=== PATIENT | male | born 1955 | race Caucasian/White ===

== ENCOUNTER 2018-09-21 07:58 | Emergency (ER) | payer MEDICAID ==
[~2018-09-21 07:58] MED LIST: AZITHROMYCIN 250 MG TAB PO SCH; predniSONE 20 MG TAB PO SCH
[2018-09-21] MEDS ORDERED: NS 1,000 ML IV ONE (08:05)
[2018-09-21] MEDS ORDERED: methylPREDNISolone SOD SUCC 125 MG/2 ML VIAL IVP ONE (08:05)
[2018-09-21] MEDS ORDERED: IPRATROPIUM/ALBUTEROL 3 ML DEYVIAL IH ONE (08:05)
--- NOTE | 2018-09-21 08:09 | EDPHY ---
H & P Time Seen by Provider: 09/21/18 08:01 Constitutional: Initial Vital Signs Temperature (C) 37 C 09/21/18 07:58 Heart Rate 114 H 09/21/18 07:58 Respiratory Rate 20 09/21/18 07:58 Blood Pressure 125/85 H 09/21/18 07:58 O2 Sat (%) 92 09/21/18 07:58 O2 Delivery Mode Room Air Allergies/Adverse Reactions: No Known Allergies Allergy (Unverified 09/21/18 08:12) Home Medications: Medication Instructions Recorded Albuterol [Proventil Inhaler] 1 - 2 puffs IH Q4 #1 mdi 09/21/18 Azithromycin [Zithromax] 250 mg PO DAILY #6 tab 09/21/18 predniSONE 40 mg PO DAILY #10 tab 09/21/18 Medical Decision Making - Diagnostics Imaging Results: Imaging Impressions Chest X-Ray 09/21/18 08:05 Impression: 1. Prominence of perihilar interstitial markings and peribronchial cuffing. Findings are nonspecific but can be seen with bronchitis, reactive airway disease, or viral process.. 2. Possible superimposed early pneumonia left lower lobe. Imaging: I viewed and interpreted images myself ED Course/Re-evaluation: CHIEF COMPLAINT: Flu-like symptoms HISTORY OF PRESENT ILLNESS: The patient is a 63 y/o male arriving via EMS complaining of flu-like symptoms, onset 3 days ago. These symptoms include a fever and shortness of breath. Last night he developed reproducible right-sided chest pain. Due to these symptoms, he decided to call 911 and present to the emergency department. No headache, abdominal pain, urinary or bowel complaints, numbness or paresthesias. REVIEW OF SYSTEMS: A comprehensive 10 system review of systems is otherwise negative aside from the elements mentioned in the history of present illness and medical decision making. PHYSICAL EXAM: HR, BP, O2 Sat, RR. Temp noted General Appearance: Alert, well hydrated, appropriate, and non-toxic appearing. Head: Atraumatic without scalp tenderness or obvious injury Eyes: Pupils equal, round, reactive to light and accommodation, EOMI, no trauma , no injection. Ears: Clear bilaterally, no perforation, normal landmarks Nose: Atraumatic, no rhinorrhea, clear. Throat: There is no erythema or exudates, no lesions, normal tonsils, mucus membranes moist. Neck: Supple, 2+ carotid upstroke, nontender, no lymphadenopathy. Respiratory: Coarse rhonchi bilaterally. No retractions, no distress, no wheezes , and no accessory muscle use. Cardiovascular: Regular rate and rhythm, no murmurs, rubs, or gallops. Bilateral carotid, radial, dorsalis pedis, and posterior tibial pulses intact. Good capillary refill all extremities. Chest: Reproducible right chest wall pain. Gastrointestinal: Abdomen is soft, nontender, non-distended, no masses, no rebound, no guarding, no peritoneal signs. Musculoskeletal: Normal active ROM of all extremities, atraumatic. Neurological: Alert, appropriate, and interactive. The patient has normal DTRs and non-focal cranial nerves, motor, sensory, and cerebellar exam. Skin: No rashes, good turgor, no nodules on palpation. Past medical history: Denies Past surgical history: Denies Family history: Denies Social history: Transient, single, not employed DIAGNOSTICS/PROCEDURES/CRITICAL CARE TIME: EKG: The 12 lead EKG was interpreted by myself as sinus tachycardia with a rate of 114. See hard copy and/or "tracemaster" electronic copy for interpretation. Chest x-ray: Early pneumonia left lower lobe. DIFFERENTIAL DIAGNOSIS: The differential diagnosis for the patient's fever included but was not limited to pneumonia, urinary tract infection, viral syndrome, meningitis, and sepsis. MEDICAL DECISION MAKING: The patient is a 63 y/o male arriving via EMS presenting with flu-like symptoms including reproducible right chest pain, onset 3 days ago. One exam he has coarse rhonchi and reproducible right chest wall pain. Chest x-ray, EKG, and labs ordered; 1L IV NS, DuoNeb, and 125mg IV Solu-Medrol. 0803: I reviewed patient's EKG as sinus tachycardia with a rate of 114. 0841: I reviewed patient's chest x-ray which reveals an early left lower lobe pneumonia. 8mg PO Decadron and 500mg PO Azithromycin administered. I have prescribed him a Z-juan carlos, prednisone, and an albuterol inhaler. 0930: Reassessed patient and discussed laboratory and imaging findings. I have also discussed the prescriptions. Return precautions provided; patient is comfortable with this plan. - Data Points Laboratory Results: Laboratory Results 09/21/18 08:25 09/21/18 08:25 09/21/18 09/21/18 09/21/18 08:25 08:25 08:25 WBC 26.57 10^3/uL H 10^3/uL (3.80-9.50) RBC 5.48 10^6/uL 10^6/uL (4.40-6.38) Hgb 17.6 g/dL H g/dL (13.7-17.5) Hct 47.9 % % (40.0-51.0) MCV 87.4 fL fL (81.5-99.8) MCH 32.1 pg pg (27.9-34.1) MCHC 36.7 g/dL g/dL (32.4-36.7) RDW 13.2 % % (11.5-15.2) Plt Count 149 10^3/uL L 10^3/uL (150-400) MPV 11.4 fL fL (8.7-11.7) Neut % (Auto) 77.7 % H % (39.3-74.2) Lymph % (Auto) 10.8 % L % (15.0-45.0) Beckham % (Auto) 7.2 % % (4.5-13.0) Eos % (Auto) 0.0 % L % (0.6-7.6) Baso % (Auto) 0.3 % % (0.3-1.7) Nucleat RBC Rel Count 0.0 % % (0.0-0.2) Absolute Neuts (auto) 20.66 10^3/uL H 10^3/uL (1.70-6.50) Absolute Lymphs (auto) 2.86 10^3/uL 10^3/uL (1.00-3.00) Absolute Monos (auto) 1.92 10^3/uL H 10^3/uL (0.30-0.80) Absolute Eos (auto) 0.00 10^3/uL L 10^3/uL (0.03-0.40) Absolute Basos (auto) 0.07 10^3/uL 10^3/uL (0.02-0.10) Absolute Nucleated RBC 0.00 10^3/uL 10^3/uL (0-0.01) Immature Gran % 4.0 % H % (0.0-1.1) Seg Neutrophils % 86.0 % % Band Neutrophils % 0.0 % % Lymphocytes % 9.0 % % Monocytes % 5.0 % % Eosinophils % 0.0 % % Basophils % 0.0 % % Metamyelocytes % 0.0 % % Myelocytes % 0.0 % % Promyelocytes % 0.0 % % Blast Cells % 0.0 % % Immature Gran # 1.06 10^3/uL H 10^3/uL (0.00-0.10) Absolute Seg Neuts 22.85 10^3/uL H 10^3/uL (1.70-6.50) Absolute Band Neuts 0.00 10^3/uL 10^3/uL (0.00-0.70) Absolute Lymphocytes 2.39 10^3/uL 10^3/uL (1.00-3.00) Absolute Monocytes 1.33 10^3/uL H 10^3/uL (0.30-0.80) Absolute Eosinophils 0.00 10^3/uL L 10^3/uL (0.03-0.40) Absolute Basophils 0.00 10^3/uL L 10^3/uL (0.02-0.10) Absolute Metamyelocyte 0.00 10^3/mL 10^3/mL (0.00-0.00) Absolute Myelocytes 0.00 10^3/mL 10^3/mL (0.00-0.00) Absolute Promyelocytes 0.00 10^3/uL 10^3/uL (0.00-0.00) Absolute Plasma Cells 0.00 10^3/uL 10^3/uL (0.00-0.00) Nucleated RBCs 0 /100 WBC /100 WBC (0-0) Absolute Blast Cells 0.00 10^3/uL 10^3/uL (0.00-0.00) Plasma Cells % 0.0 % % Platelet Estimate ADEQUATE (ADEQ) Sodium 133 mEq/L L mEq/L (135-145) Potassium 4.2 mEq/L mEq/L (3.5-5.2) Chloride 105 mEq/L mEq/L (97-110) Carbon Dioxide 20 mEq/l L mEq/l (22-31) Anion Gap 8 mEq/L mEq/L (6-14) BUN 20 mg/dL mg/dL (7-23) Creatinine 0.8 mg/dL mg/dL (0.7-1.3) Estimated GFR > 60 Glucose 147 mg/dL H mg/dL (70-100) Calcium 8.9 mg/dL mg/dL (8.5-10.4) Nasal Influenza A PCR NEGATIVE FOR FLU A (NEGATIVE) Nasal Influenza B PCR NEGATIVE FOR FLU B (NEGATIVE) Medications Given: Discontinued Medications Albuterol/Ipratropium (Duoneb) 3 ml IH EDNOW ONE Stop: 09/21/18 08:06 Last Admin: 09/21/18 08:30 Dose: 3 ml Azithromycin (Zithromax) 500 mg PO EDNOW ONE PRN Reason: Protocol Stop: 09/21/18 08:42 Last Admin: 09/21/18 08:58 Dose: 500 mg Dexamethasone (Decadron Injection) 8 mg PO EDNOW ONE Stop: 09/21/18 08:42 Last Admin: 09/21/18 08:59 Dose: 8 mg Sodium Chloride (Ns) 1,000 mls @ 0 mls/hr IV ONCE ONE; Wide Open PRN Reason: Protocol Stop: 09/21/18 08:06 Last Admin: 09/21/18 08:30 Dose: 1,000 mls Methylprednisolone Sodium Succinate (Solu-Medrol) 125 mg IVP EDNOW ONE Stop: 09/21/18 08:06 Last Admin: 09/21/18 08:30 Dose: 125 mg Departure - Departure Disposition: Home, Routine, Self-Care Clinical Impression: Pneumonia Qualifiers: Pneumonia type: due to unspecified organism Laterality: left Lung location: lower lobe of lung Qualified Code(s): J18.1 - Lobar pneumonia, unspecified organism Instructions: Viral Pneumonia (ED) Additional Instructions: 1. Take the Z-juan carlos as prescribed. 2. Take Prednisone as prescribed. 3. Use the inhaler as prescribed. 4. Follow-up with your primary doctor within 72 hours. 5. Return to the Emergency Department for severe headache, vomiting, vision changes, confusion, fever or other concerns. Referrals: [facility],. [Clinic] - As per Instructions Prescriptions: Albuterol [Proventil Inhaler] 1 - 2 puffs IH Q4 #1 mdi Azithromycin [Zithromax] 250 mg PO DAILY #6 tab predniSONE 40 mg PO DAILY #10 tab Report Scribed for: Mc A Leonila Report Scribed by: Magdalena Travis Date of Report: 09/21/18 Time of Report: 08:32
[2018-09-21 08:41] LABS: PLATELET COUNT 149 10^3/uL (150-400)
[2018-09-21] MEDS ORDERED: DEXAMETHASONE 10 MG/ML VIAL PO ONE (08:41)
[2018-09-21] MEDS ORDERED: AZITHROMYCIN 250 MG TAB PO ONE (08:41)
[2018-09-21] MEDS ORDERED: ALBUTEROL INH PREPACK MDI TAKEHOME ONE (10:13)
[2018-09-21 11:14] VITALS: BP 121/73
--- NOTE | 2018-09-21 12:34 | ASMTCMCOM ---
CM Note CM Note Notes: Patient is a very pleasant homeless gentleman with a LL PNA. He is staying at [facility] and will be in permanemt housing soon. Patient does have Medicaid, however it is [place] and the only known open pharmacy is in [place]. I have Mapped prescriptions for Decadron and Azithromycin and have educated patient on dosing and following prescription instructions. [facility] and has not established a PCP. He has received a referral to the [facility] and I have asked him to go there tomorrow to schedule a follow up appointment and have provided patient with the "walk in hours" schedule as well. I have faxed a copy of patient's ED report and facesheet to the clinic for a "referral for follow up". Date Signed: 09/21/2018 11:18 AM Electronically Signed By:Leah Covarrubias RN
--- NOTE | 2018-09-23 09:35 | CPEKG ---
Test Reason : OPEN Blood Pressure : / mmHG Vent. Rate : 114 BPM Atrial Rate : 115 BPM P-R Int : 136 ms QRS Dur : 093 ms QT Int : 324 ms P-R-T Axes : 075 087 070 degrees QTc Int : 447 ms Sinus tachycardia Probable left atrial enlargement Consider right ventricular hypertrophy Confirmed by Mandeep Landis ([id number]) on 09/23/2018 9:35:05 AM Referred By: Confirmed By:Mandeep Landis
== END 2018-09-21 11:13 | disposition home or self-care (01) ==
DX: J18.1 Lobar pneumonia, unspecified organism (principal); E86.9 Volume depletion, unspecified
CPT/HCPCS: 96374; J1100; J2930; J7512